=== PATIENT | female | born 1955 | race Caucasian/White ===

== ENCOUNTER 2017-12-20 07:15 | Day surgery (SDC) | payer BC ==
[2017-12-20] MEDS ORDERED: MIDAZOLAM 1 MG/ML 2 ML INJ ×2 (08:43)
[2017-12-20] MEDS ORDERED: FENTAnyl 50 MCG/ML VIAL (08:43)
== END 2017-12-20 17:35 | disposition home or self-care (01) ==
LOC: GIL 07:15
DX: Z12.11 Encounter for screening for malignant neoplasm of colon (principal); K64.8 Other hemorrhoids; I10 Essential (primary) hypertension
CPT/HCPCS: 45378